=== PATIENT | female | born 2000 | race American Indian/Alaskan Native ===

== ENCOUNTER 2021-05-28 13:17 | Emergency (ER) | payer SELFPAY ==
--- NOTE | 2021-05-28 18:49 | Emergency Department Report ---
ED General Adult HPI - General Chief complaint: Vaginal Bleeding Stated complaint: TEST Time Seen by Provider: 05/28/21 18:13 Source: patient Mode of arrival: Ambulatory Limitations: No Limitations - History of Present Illness Severity scale (0 -10): 0 - Related Data Allergies Allergy/AdvReac Type Severity Reaction Status Date / Time No Known Allergies Allergy Unverified 05/28/21 17:50 ED Review of Systems ROS: Stated complaint: TEST Other details as noted in HPI ED Physical Exam - General Limitations: No Limitations ED Course Vital Signs 05/28/21 17:48 Temperature 98.2 F Pulse Rate 84 Respiratory 16 Rate Blood Pressure 151/70 [Right] O2 Sat by Pulse 99 Oximetry Critical care attestation.: If time is entered above; I have spent that time in minutes in the direct care of this critically ill patient, excluding procedure time. ED Disposition Condition: Stable
[2021-05-28 19:01] LABS: Basophils # (Auto) 0.1 K/mm3 (0.0-0.1); Basophils % (Auto) 0.7 % (0.0-1.8); Eosinophils # (Auto) 0.1 K/mm3 (0.0-0.4); Eosinophils % (Auto) 0.7 % (0.0-4.3); Lymphocytes % (Auto) 32.8 % (13.4-35.0); Mean Corpuscular HGB Conc 29 % (30-34); Monocytes # (Auto) 0.7 K/mm3 (0.0-0.8); Monocytes % (Auto) 7.7 % (0.0-7.3); Platelet Count 425 K/mm3 (140-440); Red Blood Count 4.21 M/mm3 (3.65-5.03)
[2021-05-28 19:02] LABS: Hemoglobin 8.4 gm/dl (10.1-14.3)
[2021-05-28 19:03] LABS: Hematocrit 28.7 % (30.3-42.9); Mean Corpuscular Volume 68 fl (79-97); Red Cell Distribution Width 21.8 % (13.2-15.2)
[2021-05-28 19:23] LABS: Blood Urea Nitrogen 6 mg/dL (7-17); Hemolysis Index 1
--- NOTE | 2021-05-28 19:25 | Event Note ---
ED Screening Note ED Screening Note: Patient presents with complaints of lower abdominal pain and cramping States she had 2 positive home test She denies any vaginal bleeding Last menstrual cycle was approximately 1 month ago per patient No prior pregnancies per patient She denies any fever, urinary symptoms, or past medical history This initial assessment/diagnostic orders/clinical plan/treatment(s) is/are subject to change based on patients health status, clinical progression and re- assessment by fellow clinical providers in the ED. Further treatment and workup at subsequent clinical providers discretion. Patient/guardian urged not to elope from the ED as their condition may be serious if not clinically assessed and managed. Initial orders include: Labs Ultrasound
[2021-05-28 19:29] LABS: BUN/Creatinine Ratio 12
[2021-05-28 19:32] LABS: Bilirubin,Urine NEG (Negative); Blood,Urine NEG (Negative); Color,Urine Yellow (Yellow); Mucus,Urine FEW /HPF; Protein,Urine <15 mg/dL mg/dL (Negative)
[2021-05-28 19:33] LABS: HCG Qualitative,Urine Negative (Negative)
--- NOTE | 2021-05-28 19:56 | Emergency Department Report ---
ED General Adult HPI - General Chief complaint: Vaginal Bleeding Stated complaint: TEST Time Seen by Provider: 05/28/21 18:13 Source: patient Mode of arrival: Ambulatory Limitations: No Limitations - History of Present Illness Initial comments: Patient presents with complaints of lower abdominal pain and cramping States she had 2 positive home test She denies any vaginal bleeding Last menstrual cycle was approximately 1 month ago per patient No prior pregnancies per patient She denies any fever, urinary symptoms, or past medical history Severity scale (0 -10): 0 - Related Data Previous Rx's Medication Instructions Recorded Last Taken Type Ibuprofen [Motrin 800 MG tab] 800 mg PO Q8HR PRN #15 tablet 05/28/21 Unknown Rx Sulfamethoxazole/Trimethoprim 1 each PO BID 5 Days #10 tab 05/28/21 Unknown Rx [Bactrim DS TAB] Allergies Allergy/AdvReac Type Severity Reaction Status Date / Time No Known Allergies Allergy Unverified 05/28/21 17:50 ED Review of Systems ROS: Stated complaint: TEST Other details as noted in HPI Constitutional: denies: chills, fever Respiratory: denies: cough, shortness of breath Cardiovascular: denies: chest pain Gastrointestinal: as per HPI, nausea. denies: vomiting, diarrhea, constipation, hematemesis, melena, hematochezia Genitourinary: denies: frequency, hematuria, discharge Musculoskeletal: denies: back pain Skin: denies: rash, lesions ED Past Medical Hx - Medications Home Medications: Home Medications Medication Instructions Recorded Confirmed Last Taken Type Ibuprofen [Motrin 800 MG tab] 800 mg PO Q8HR PRN #15 tablet 05/28/21 Unknown Rx Sulfamethoxazole/Trimethoprim 1 each PO BID 5 Days #10 tab 05/28/21 Unknown Rx [Bactrim DS TAB] ED Physical Exam - General Limitations: No Limitations General appearance: alert, in no apparent distress - Head Head exam: Present: atraumatic, normocephalic - Eye Eye exam: Present: normal appearance. Absent: scleral icterus - Respiratory Respiratory exam: Present: normal lung sounds bilaterally. Absent: respiratory distress - Cardiovascular Cardiovascular Exam: Present: regular rate, normal rhythm - GI/Abdominal GI/Abdominal exam: Present: soft, normal bowel sounds. Absent: distended, tenderness, guarding, rebound, rigid - Back Exam Back exam: Absent: CVA tenderness (R), CVA tenderness (L) - Neurological Exam Neurological exam: Present: alert, oriented X3 - Psychiatric Psychiatric exam: Present: normal affect, normal mood - Skin Skin exam: Present: warm, dry, intact, normal color. Absent: rash ED Course Vital Signs 05/28/21 17:48 Temperature 98.2 F Pulse Rate 84 Respiratory 16 Rate Blood Pressure 151/70 [Right] O2 Sat by Pulse 99 Oximetry ED Medical Decision Making - Lab Data Result diagrams: 05/28/21 18:40 05/28/21 18:40 Lab Results 05/28/21 05/28/21 05/28/21 Range/Units 18:40 18:40 18:40 WBC 9.2 (4.5-11.0) K/mm3 RBC 4.21 (3.65-5.03) M/mm3 Hgb 8.4 L (10.1-14.3) gm/dl Hct 28.7 L (30.3-42.9) % MCV 68 L (79-97) fl MCH 20 L (28-32) pg MCHC 29 L (30-34) % RDW 21.8 H (13.2-15.2) % Plt Count 425 (140-440) K/mm3 Lymph % (Auto) 32.8 (13.4-35.0) % Angelina % (Auto) 7.7 H (0.0-7.3) % Eos % (Auto) 0.7 (0.0-4.3) % Baso % (Auto) 0.7 (0.0-1.8) % Lymph # (Auto) 3.0 (1.2-5.4) K/mm3 Angelina # (Auto) 0.7 (0.0-0.8) K/mm3 Eos # (Auto) 0.1 (0.0-0.4) K/mm3 Baso # (Auto) 0.1 (0.0-0.1) K/mm3 Seg Neutrophils % 58.1 (40.0-70.0) % Seg Neutrophils # 5.4 (1.8-7.7) K/mm3 Sodium 141 (137-145) mmol/L Potassium 3.4 L (3.6-5.0) mmol/L Chloride 105.5 (98-107) mmol/L Carbon Dioxide 21 L (22-30) mmol/L Anion Gap 18 mmol/L BUN 6 L (7-17) mg/dL Creatinine 0.5 L (0.6-1.2) mg/dL Estimated GFR > 60 ml/min BUN/Creatinine Ratio 12 % Glucose 99 (65-100) mg/dL Calcium 9.0 (8.4-10.2) mg/dL HCG, Quant < 2 (0-4) mIU/mL Urine Color (Yellow) Urine Turbidity (Clear) Urine pH (5.0-7.0) Ur Specific [place] (1.003-1.030) Urine Protein (Negative) mg/dL Urine Glucose (UA) (Negative) mg/dL Urine Ketones (Negative) mg/dL Urine Blood (Negative) Urine Nitrite (Negative) Urine Bilirubin (Negative) Urine Urobilinogen (<2.0) mg/dL Ur Leukocyte Esterase (Negative) Urine WBC (Auto) (0.0-6.0) /HPF Urine RBC (Auto) (0.0-6.0) /HPF U Epithel Cells (Auto) (0-13.0) /HPF Urine Mucus /HPF Urine HCG, Qual (Negative) 05/28/21 Range/Units Unknown WBC (4.5-11.0) K/mm3 RBC (3.65-5.03) M/mm3 Hgb (10.1-14.3) gm/dl Hct (30.3-42.9) % MCV (79-97) fl MCH (28-32) pg MCHC (30-34) % RDW (13.2-15.2) % Plt Count (140-440) K/mm3 Lymph % (Auto) (13.4-35.0) % Angelina % (Auto) (0.0-7.3) % Eos % (Auto) (0.0-4.3) % Baso % (Auto) (0.0-1.8) % Lymph # (Auto) (1.2-5.4) K/mm3 Angelina # (Auto) (0.0-0.8) K/mm3 Eos # (Auto) (0.0-0.4) K/mm3 Baso # (Auto) (0.0-0.1) K/mm3 Seg Neutrophils % (40.0-70.0) % Seg Neutrophils # (1.8-7.7) K/mm3 Sodium (137-145) mmol/L Potassium (3.6-5.0) mmol/L Chloride (98-107) mmol/L Carbon Dioxide (22-30) mmol/L Anion Gap mmol/L BUN (7-17) mg/dL Creatinine (0.6-1.2) mg/dL Estimated GFR ml/min BUN/Creatinine Ratio % Glucose (65-100) mg/dL Calcium (8.4-10.2) mg/dL HCG, Quant (0-4) mIU/mL Urine Color Yellow (Yellow) Urine Turbidity Clear (Clear) Urine pH 7.0 (5.0-7.0) Ur Specific [place] 1.017 (1.003-1.030) Urine Protein <15 mg/dl (Negative) mg/dL Urine Glucose (UA) Neg (Negative) mg/dL Urine Ketones Neg (Negative) mg/dL Urine Blood Neg (Negative) Urine Nitrite Neg (Negative) Urine Bilirubin Neg (Negative) Urine Urobilinogen 2.0 (<2.0) mg/dL Ur Leukocyte Esterase Tr (Negative) Urine WBC (Auto) 19.0 H (0.0-6.0) /HPF Urine RBC (Auto) 7.0 (0.0-6.0) /HPF U Epithel Cells (Auto) 1.0 (0-13.0) /HPF Urine Mucus Few /HPF Urine HCG, Qual Negative (Negative) - Medical Decision Making test is negative. UA shows UTI. Labs are otherwise negative for any acute abnormalities. Patient is well-appearing, her vitals are within normal limits, she is stable for discharge home. Will treat UTI with Bactrim. Recommend follow-up with PCP in 3 to 5 days. Strict return precautions were discussed in detail with patient who verbalizes understanding Critical care attestation.: If time is entered above; I have spent that time in minutes in the direct care of this critically ill patient, excluding procedure time. ED Disposition Clinical Impression: UTI (urinary tract infection) Disposition: 01 HOME / SELF CARE / HOMELESS Is pt being admited?: No Condition: Stable Instructions: Urinary Tract Infection, Adult, [id number] Prescriptions: Sulfamethoxazole/Trimethoprim [Bactrim DS TAB] 1 each PO BID 5 Days #10 tab Ibuprofen [Motrin 800 MG tab] 800 mg PO Q8HR PRN #15 tablet PRN Reason: pain Referrals: PRIMARY CARE, [Primary Care Provider] - 3-5 Days [facility] [Provider Group] - 3-5 Days
[2021-05-28 20:15] VITALS: BP 114/68
== END 2021-05-28 20:09 | disposition home or self-care (01) ==
LOC: ED 13:17
DX: N39.0 Urinary tract infection, site not specified (principal)
CPT/HCPCS: 36415; 80048; 81001; 81025; 84702; 85025; 87086; 99283

== ENCOUNTER 2021-07-02 13:53 | Emergency (ER) | payer OTHER ==
[2021-07-02 16:09] VITALS: BP 115/47
[2021-07-02] MEDS ORDERED: ONDANSETRON 4 MG ODT TAB PO ONE (16:43)
[2021-07-02 17:10] LABS: Bilirubin,Urine NEG (Negative); Blood,Urine NEG (Negative); Color,Urine Yellow (Yellow); Mucus,Urine 2+ /HPF
[2021-07-02 17:16] LABS: Mean Corpuscular HGB Conc 29 % (30-34); Mean Corpuscular Volume 70 fl (79-97); Platelet Count 344 K/mm3 (140-440); Red Blood Count 4.15 M/mm3 (3.65-5.03)
[2021-07-02 17:18] LABS: Hematocrit 29.1 % (30.3-42.9); Hemoglobin 8.6 gm/dl (10.1-14.3); Red Cell Distribution Width 22.3 % (13.2-15.2)
[2021-07-02 17:35] LABS: Alanine Aminotransferase 11 units/L (7-56); Albumin 4.5 g/dL (3.9-5); Blood Urea Nitrogen 4 mg/dL (7-17); Calcium 8.8 mg/dL (8.4-10.2); Hemolysis Index 6
[2021-07-02 17:47] LABS: BUN/Creatinine Ratio 8
--- NOTE | 2021-07-02 19:47 | Ultrasound Report ---
ULTRASOUND OBSTETRIC Indication: preg, abdominal pain Findings: There is a single, living intrauterine . Yolk sac is visualized. [place]-rump length = 1.05 cm = 7 weeks, 1 day(s). heart rate is 160 beats per minute. Right ovary is unremarkable. Left ovary was not visualized. There is no free fluid. Impression: Single, living intrauterine with estimated sonographic age of 7 weeks, 1 day(s). Signer Name: Naldo Earl MD Signed: 07/02/2021 7:43 PM Workstation Name: [id number]
--- NOTE | 2021-07-02 19:53 | Emergency Department Report ---
ED HPI - General Chief complaint: Urogenital-Female Stated complaint: VAGINAL DISCHARGE (4MOS PREG) Time Seen by Provider: 07/02/21 16:27 Source: patient Mode of arrival: Ambulatory Limitations: No Limitations - History of Present Illness Initial comments: 21 yof with no pmh presents to ed for evaluation of abdominal pain, vaginal irritation/pressure for the past few days. She states that she is unsure of her last period but was diagnosed with UTI over a week ago but did not take the antibiotics because she was given Bactrim and was concerned because they are not safe. She denies fever and diarrhea but has had some n/v and clear vaginal discharge without odor. MD Complaint: abdominal pain, vaginal discharge -: Gradual, days(s) (3-4) Location: abdomen Severity: moderate Quality: cramping, aching Consistency: constant Associated symptoms: nausea/vomiting, vaginal discharge, abdominal pain, dysuria. denies: vaginal bleeding, headache, vision changes, malaise, shortness of breath, syncope, weakness Vaginal bleeding: none :: Yes Pre-[place] care: none - Related Data : 1 Para: 0 Previous Rx's Medication Instructions Recorded Last Taken Type Ibuprofen [Motrin 800 MG tab] 800 mg PO Q8HR PRN #15 tablet 05/28/21 Unknown Rx Sulfamethoxazole/Trimethoprim 1 each PO BID 5 Days #10 tab 05/28/21 Unknown Rx [Bactrim DS TAB] Ondansetron [Zofran Odt] 4 mg PO Q8HR PRN #12 tab.rapdis 07/02/21 Unknown Rx cephALEXin [Keflex] 500 mg PO BID #14 cap 07/02/21 Unknown Rx Allergies Allergy/AdvReac Type Severity Reaction Status Date / Time No Known Allergies Allergy Unverified 05/28/21 17:50 ED Review of Systems ROS: Stated complaint: VAGINAL DISCHARGE (4MOS PREG) Other details as noted in HPI Comment: All other systems reviewed and negative Constitutional: denies: chills, diaphoresis, fever, malaise, weakness Eyes: denies: eye pain, eye discharge ENT: denies: ear pain Respiratory: denies: cough, orthopnea, shortness of breath Cardiovascular: denies: chest pain, palpitations, dyspnea on exertion, syncope Endocrine: denies: no symptoms reported Gastrointestinal: abdominal pain, nausea, vomiting. denies: diarrhea, constipation, hematemesis, melena, hematochezia Genitourinary: dysuria, discharge. denies: urgency, frequency Musculoskeletal: denies: back pain, joint swelling Skin: denies: lesions Neurological: denies: headache, weakness, numbness, paresthesias Hematological/Lymphatic: denies: easy bleeding, easy bruising ED Past Medical Hx - Medications Home Medications: Home Medications Medication Instructions Recorded Confirmed Last Taken Type Ibuprofen [Motrin 800 MG tab] 800 mg PO Q8HR PRN #15 tablet 05/28/21 Unknown Rx Sulfamethoxazole/Trimethoprim 1 each PO BID 5 Days #10 tab 05/28/21 Unknown Rx [Bactrim DS TAB] Ondansetron [Zofran Odt] 4 mg PO Q8HR PRN #12 tab.rapdis 07/02/21 Unknown Rx cephALEXin [Keflex] 500 mg PO BID #14 cap 07/02/21 Unknown Rx ED Physical Exam - General Limitations: No Limitations General appearance: alert, in no apparent distress - Head Head exam: Present: atraumatic, normocephalic - Eye Eye exam: Present: normal appearance. Absent: conjunctival injection - Neck Neck exam: Present: normal inspection, full ROM. Absent: tenderness - Respiratory Respiratory exam: Present: normal lung sounds bilaterally. Absent: respiratory distress, wheezes, rales, rhonchi, stridor, chest wall tenderness, accessory muscle use - Cardiovascular Cardiovascular Exam: Present: regular rate, normal heart sounds - GI/Abdominal GI/Abdominal exam: Present: soft, normal bowel sounds. Absent: distended, tenderness, guarding, rebound, rigid - Extremities Exam Extremities exam: Present: normal inspection - Back Exam Back exam: Present: normal inspection, full ROM. Absent: tenderness, CVA tenderness (R), CVA tenderness (L) - Neurological Exam Neurological exam: Present: alert, oriented X3 - Psychiatric Psychiatric exam: Present: normal affect, normal mood - Skin Skin exam: Present: warm, dry, intact, normal color ED Course Vital Signs 07/02/21 16:05 Temperature 98.5 F Pulse Rate 88 Respiratory 18 Rate Blood Pressure 115/47 [Right] O2 Sat by Pulse 98 Oximetry ED Medical Decision Making - Lab Data Result diagrams: 07/02/21 16:58 07/02/21 16:58 - Radiology Data Radiology results: report reviewed OB US= single living IUP with estimated sonographic age of 7 weeks and 1 day. - Medical Decision Making 21 yof with no pmh presents to ed for evaluation of abdominal pain, vaginal irritation/pressure for the past few days. She states that she is unsure of her last period but was diagnosed with UTI over a week ago but did not take the antibiotics because she was given Bactrim and was concerned because they are not safe. She denies fever and diarrhea but has had some n/v and clear vaginal discharge without odor. US positive for IUP at 7 weeks and 1 day, UA positive for UTI, labs with slightly low H/H and K. Patient will be treated for UTi and advised to take vitamins with iron. She was advised to take tylenol only for pain, and follow up with business rules developer for routine care. She verbalized understanding of and agreement with plan of care. Critical care attestation.: If time is entered above; I have spent that time in minutes in the direct care of this critically ill patient, excluding procedure time. ED Disposition Clinical Impression: Abdominal pain during in first trimester UTI (urinary tract infection) Qualifiers: Urinary tract infection type: acute cystitis Hematuria presence: without hematuria Qualified Code(s): N30.00 - Acute cystitis without hematuria Disposition: HOME / SELF CARE / HOMELESS Is pt being admited?: No Does the pt Need Aspirin: No Condition: Stable Instructions: Abdominal Pain During , [id number], and Urinary Tract Infection Additional Instructions: Take medications as prescribed. Start vitamin. Drink plenty of noncaffeinated fluids. Only use Tylenol as needed for pain. Follow-up with CLINICAL TECH for further care. Prescriptions: cephALEXin [Keflex] 500 mg PO BID #14 cap Ondansetron [Zofran Odt] 4 mg PO Q8HR PRN #12 tab.rapdis PRN Reason: Nausea Referrals: PRIMARY CAREMD [Primary Care Provider] - 3-5 Days ELEONORA BRODY MD [Staff Physician] - 3-5 Days Time of Disposition: 19:53
== END 2021-07-02 20:30 | disposition home or self-care (01) ==
LOC: ED 13:53
DX: O26.891 Other specified pregnancy related conditions, first trimester (principal); R10.9 Unspecified abdominal pain; Z3A.01 Less than 8 weeks gestation of pregnancy
CPT/HCPCS: 36415; 76801; 80053; 81001; 84702; 85027; 87086; 99284; J3490; Q0162